=== PATIENT | female | born 1955 | race Caucasian/White ===

== ENCOUNTER 2022-06-14 08:34 | Emergency (ER) | payer OTHER, BC ==
[~2022-06-14] VITALS: Ht 162.6 cm; Wt 78.2 kg
[2022-06-14 08:49] VITALS: BP 161/59
--- NOTE | 2022-06-14 09:07 | NUR ---
ERMD AT BEDSIDE
--- NOTE | 2022-06-14 09:13 | NUR ---
66 Y/O FEMALE BIB SELF C/O DIZZINES, NUMBNESS, LEFT SIDED العر[place]قي, LEFT FACE PAIN AND SENSATION OF PRESSURE , LEFT EYE WATERY X 1 WEEK WITH INCREASED SENSATION OF VERTIGO AND NUMBNESS X1 DAY AT 0700 TODAY. BILATERAL HAND GRASP EQUAL, NO FACIAL DROOP OR SWELLING NOTED. ERMD AT BEDSIDE FOR NIHSSX1. PER PT NUMBNESS IS BASELINE FROM CVA PMH: HTN, ANXIETY, CVA 40 YEARS AGO
[2022-06-14] MEDS ORDERED: MECLIZINE 25 MG TAB PO ONE (09:35)
[2022-06-14] MEDS ORDERED: IBUPROFEN 600 MG TAB PO ONE (09:35)
[2022-06-14] MEDS ORDERED: ACETAMINOPHEN 325 MG TAB PO ONE (09:35)
--- NOTE | 2022-06-14 09:45 | NUR ---
PT TAKEN TO CT VIA WC
--- NOTE | 2022-06-14 11:12 | NUR ---
DR BRYANT AT BEDSIDE FOR REEVAL
[2022-06-14] MEDS ORDERED: MECL-370 PO (11:30)
[2022-06-14 11:42] VITALS: BP 149/85
--- NOTE | 2022-06-14 11:42 | NUR ---
Patient discharged with v/s stable. Written and verbal after care instructions ABOUT VERTIGO AND GENERAL HEADACHE given and explained. Patient alert, oriented and verbalized understanding of instructions. Ambulatory with steady gait. All questions addressed prior to discharge. ID band removed. Patient advised to follow up with PMD. Rx of MECLEZINE given. Patient educated on indication of medication including possible reaction and side effects. Opportunity to ask questions provided and answered.
== END 2022-06-14 11:42 | disposition home or self-care (01) ==
LOC: MED 08:34
DX: R42 Dizziness and giddiness (principal); R51.9 Headache, unspecified; E03.9 Hypothyroidism, unspecified; I10 Essential (primary) hypertension; Z88.5 Allergy status to narcotic agent; Z79.899 Other long term (current) drug therapy
CPT/HCPCS: 70450; 99284; J8597

== ENCOUNTER 2022-07-15 22:45 | Emergency (ER) | payer OTHER, BC ==
[~2022-07-15] VITALS: Ht 162.6 cm; Wt 77.1 kg
[~2022-07-15 22:45] MED LIST: MECL-370 PO
[2022-07-15 22:55] VITALS: BP 143/75
--- NOTE | 2022-07-15 23:03 | NUR ---
PT TAKEN TO BED 3 VIA WHEELCHAIR
--- NOTE | 2022-07-15 23:03 | NUR ---
DIZZINESS, NAUSEATED, L ARM PAIN TODAY. HAD WINE AND 2 BEERS TODAY PMH: HYPERTHYROIDISM, HEAD INJURY, HTN ALLERGIES: CODEINE, MORPHINE
[2022-07-15] MEDS ORDERED: ONDANSETRON 4 MG ODT PO ONE (23:50)
[2022-07-15] MEDS ORDERED: MECLIZINE 25 MG TAB PO ONE (23:50)
[2022-07-16 00:01] LABS: BASOPHILS # (AUTO) 0.1 K/uL (0.00-0.22); EOSINOPHILS # (AUTO) 0.2 K/uL (0-0.4); EOSINOPHILS % (AUTO) 2.8 % (0.0-4.0); HEMATOCRIT 35.8 % (36-48); HEMOGLOBIN 12.2 g/dL (12.0-16.0); LYMPHOCYTES # (AUTO) 1.7 K/uL (2.5-16.5); LYMPHOCYTES % (AUTO) 28.6 % (20.5-51.1); MEAN CORPUSCULAR HEMOGLOBIN 32 pg (27-31); MEAN CORPUSCULAR HGB CONC 34 g/dL (33-37); MEAN CORPUSCULAR VOLUME 93.1 fL (80-94); MONOCYTES # (AUTO) 0.4 K/uL (0.8-1.0); MONOCYTES % (AUTO) 6.9 % (1.7-9.3); NEUTROPHILS # (AUTO) 3.7 K/uL (1.8-7.7); NEUTROPHILS % (AUTO) 60.7 % (42.2-75.2); PLATELET COUNT (AUTO) 237 K/uL (140-450); RED BLOOD CELL COUNT(AUTO) 3.85 MIL/uL (4.20-5.40); RED CELL DISTRIBUTION WIDTH 13.9 % (11.6-13.7); WHITE BLOOD COUNT (AUTO) 6.1 K/uL (4.8-10.8)
[2022-07-16 00:23] LABS: ALBUMIN 4.2 g/dL (3.4-5.0); ANION GAP 11.6 (8-16); ASPARTATE AMINOTRANSFERASE 24 U/L (15-37); CARBON DIOXIDE 27.1 mmol/L (21-32); CHLORIDE 100 mmol/L (98-107); CREATININE 0.8 mg/dL (0.6-1.3); GFR ARICAN-AMERICAN 92 mL/min (>90); GLUCOSE 116 mg/dL (74-106); POTASSIUM 3.7 mmol/L (3.5-5.1); SODIUM SERUM 135 mmol/L (136-145); UREA NITROGEN, BLOOD 19 mg/dL (7-18)
[2022-07-16 00:45] LABS: TOTAL BILIRUBIN 0.3 mg/dL (0.0-1.0)
[2022-07-16] MEDS ORDERED: ONDA-188 PO (01:23)
[2022-07-16] MEDS ORDERED: MECL-370 PO (01:23)
--- NOTE | 2022-07-16 01:44 | NUR ---
Patient discharged with v/s stable. Written and verbal after care instructions given and explained. Patient alert, oriented and verbalized understanding of instructions. Ambulatory with steady gait. All questions addressed prior to discharge. ID band removed. Patient advised to follow up with PMD. Rx of MECLIZINE HCI ZOFRAN given. Patient educated on indication of medication including possible reaction and side effects. Opportunity to ask questions provided and answered.
== END 2022-07-16 01:44 | disposition home or self-care (01) ==
LOC: MED 22:45
DX: R42 Dizziness and giddiness (principal); I10 Essential (primary) hypertension; Z86.73 Personal history of transient ischemic attack (TIA), and cerebral infarction without residual deficits; Z88.5 Allergy status to narcotic agent; Z79.1 Long term (current) use of non-steroidal anti-inflammatories (NSAID); Z79.899 Other long term (current) drug therapy
CPT/HCPCS: 36415; 80053; 84484; 85025; 93005; 99284; J8597; Q0162